=== PATIENT | female | born 1990 | race Caucasian/White ===

== ENCOUNTER 2022-02-28 18:09 | Emergency (ER) | payer BC, SELFPAY ==
--- NOTE | 2022-02-28 18:11 | ED.URI ---
HPI - URI/Sore Throat General Chief Complaint: Upper Respiratory Infection Stated Complaint: sore throat Time Seen by Provider: 02/28/22 18:11 Source: patient and RN notes reviewed History of Present Illness HPI Narrative: Patient is a 31-year-old female who presents the urgent care with complaints of a sore throat that started last Thursday and Thursday she has had a painful swallowing. Patient has been taking DayQuil and NyQuil [id number]. Denies of any ill contacts. Denies any nausea, vomiting or fever. No other acute complaints. No acute distress noted. Patient aware of the plan of care. Some parts of this dictation were generated by voice recognition software and may contain typographical and/or grammatical inaccuracies. Related Data Allergies Allergy/AdvReac Type Severity Reaction Status Date / Time No Known Allergies Allergy Verified 02/28/22 18:29 Review of Systems Review of Systems: CONSTITUTIONAL: Denies fever, chills, or sweats. EYES: Denies visual changes, redness, or discharge. ENT: Denies rhinorrhea, congestion, otalgia. Reports of sore throat CARDIOVASCULAR: Denies chest pain, palpitations, or edema. RESPIRATORY: Denies cough or dyspnea. GASTROINTESTINAL: Denies abdominal pain, nausea, vomiting, or diarrhea. GENITOURINARY: Denies dysuria or hematuria. SKIN: Denies rash or itching. MUSCULOSKELETAL: Denies back pain, joint pain, or myalgia. NEUROLOGIC: Denies headache, numbness, or weakness. All other systems reviewed are negative, except as documented in HPI. PMFSH Comments At the time of my signature, I reviewed and agree with the nursing past medical, surgical, social, and family history. There is no relevant family history pertinent to the patient complaint. Exam Narrative: GENERAL: This is a well-nourished, well-developed patient, in no apparent distress. HEAD: normocephalic, atraumatic. EYES: PERRL. Sclera clear/white. Vision is grossly intact. EARS: External ears normal, auditory canals clear and without drainage, TMs normal without perforation. Hearing grossly intact. NOSE: External nose normal with no obvious nasal discharge, nares without redness, no rhinorrhea. THROAT: Mucous membranes moist.Moderate erythema noted posterior pharynx with moderate bilateral copious amounts of exudate with mild tonsillar edema/erythema NECK: Neck supple. CARDIOVASCULAR: Regular rate and rhythm without murmurs, gallops, or rubs. RESPIRATORY: Clear to auscultation. Breath sounds equal bilaterally. No wheezes, rales, or rhonchi. SKIN: warm, intact with no suspicious lesions or rash, good texture and turgor. NEURO: awake, alert, and oriented to person, place and time. There were no obvious focal neurologic abnormalities. EXTREMITIES: No clubbing, cyanosis, or edema. Course Course Level of Care: Express Care Visit Vital Signs Vital signs: Vital Signs Temperature 98.9 F 02/28/22 18:15 Pulse Rate 86 02/28/22 18:15 Respiratory Rate 16 02/28/22 18:15 Blood Pressure 134/79 02/28/22 18:15 Pulse Oximetry 100 02/28/22 18:15 Temperature 98.9 F 02/28/22 18:15 Pulse Rate 86 02/28/22 18:15 Respiratory Rate 16 02/28/22 18:15 Blood Pressure 134/79 02/28/22 18:15 Pulse Oximetry 100 02/28/22 18:15 Reviewed MDM - URI/Sore Throat MDM Narrative Medical decision making narrative: Reviewed lab results with the patient. She is aware that strep swab was negative. Wood test was also negative. You will be placed on amoxicillin for tonsillitis and if you develop any diffuse rash, it is highly likely you have mono and you should stop the antibiotic regimen. The Monospot test in the facility is not always extremely accurate and therefore if symptoms persist, follow-up with your PCP for blood work. Otherwise complete the oral antibiotic regimen as prescribed. Be sure to eat and drink with the medication. May continue daily antihistamines as needed. Use Tylenol/ibuprofen as needed. Follow-up with
[2022-02-28 18:15] VITALS: BP 134/79; PULSE 86; RESP 16; TEMP 37.2; O2SAT 100
== END 2022-02-28 19:00 | disposition home or self-care (01) ==
PROVIDERS: Emergency Provider Nurse Practitioner Family
DX: J03.90 Acute tonsillitis, unspecified (principal); Z86.16 Personal history of COVID-19
CPT/HCPCS: 36416; 86308; 87081; 87880; 99213; G0463